=== PATIENT | female | born 1990 | race Caucasian/White ===

== ENCOUNTER 2017-04-07 13:06 | Emergency (ER) | payer MEDICAID, OTHER ==
[~2017-04-07] VITALS: Ht 160 cm; Wt 100.0 kg
[~2017-04-07 13:06] MED LIST: CLON-570 PO; FLUV50 PO; LITH300C3 PO; QUET25TA PO
[2017-04-07] MEDS ORDERED: LIDOCAINE HCL 1% 10 ML VIAL INJ ONE (14:00)
[2017-04-07] MEDS ORDERED: POVIDONE-IODINE 10% 15 ML SOLUTION UD TP ONE (14:00)
[2017-04-07] MEDS ORDERED: HYDROCODONE/ACETAMINOPHEN 5-325 MG TABLET PO ONE (14:00)
[2017-04-07] MEDS ORDERED: CEPHALEXIN MONOHYDRATE 500 MG CAPSULE PO ONE (14:45)
[2017-04-07] MEDS ORDERED: SULFAMETHOX/TRIMETH DS 800-160 MG/TABLET PO ONE (14:45)
[2017-04-07 15:21] VITALS: BP 127/79
[2017-04-07] MEDS ORDERED: BACTDSB PO (19:14)
[2017-04-07] MEDS ORDERED: IBUP-2071 PO (19:14)
[2017-04-07] MEDS ORDERED: CEPH500 PO (19:14)
== END 2017-04-07 15:37 | disposition home or self-care (01) ==
LOC: EMS 13:08
DX: L02.416 Cutaneous abscess of left lower limb (principal); L03.116 Cellulitis of left lower limb; I10 Essential (primary) hypertension
CPT/HCPCS: 10060; 99284; J3490

== ENCOUNTER 2017-04-07 19:08 | Emergency (ER) | payer OTHER ==
[~2017-04-07] VITALS: Ht 160 cm; Wt 100.0 kg
[2017-04-07] MEDS ORDERED: IBUP-2071 PO (19:14)
[2017-04-07] MEDS ORDERED: BACTDSB PO (19:14)
[2017-04-07] MEDS ORDERED: CEPH500 PO (19:14)
[2017-04-07] MEDS: SODIUM CHLORIDE 0.9% 1,000 ML IV ONE (22:42)
[2017-04-07] MEDS: MethylPREDNISolone SOD SUCC 125 MG/2 ML VIAL IVP ONE (22:42)
[2017-04-07] MEDS: DiphenhydrAMINE HCL 50 MG/ML VIAL IVP ONE (22:42)
[2017-04-07] MEDS: ONDANSETRON HCL 4 MG/2 ML VIAL IVP ONE (22:42)
[2017-04-07] MEDS: ACETAMINOPHEN 500 MG TABLET PO ONE (23:06)
[2017-04-08] MEDS: DiphenhydrAMINE HCL 50 MG/ML VIAL IVP ONE (00:49)
[2017-04-08] MEDS: LORazepam 2 MG/ML VIAL IVP ONE (02:00)
[2017-04-08] MEDS: KETOROLAC TROMETHAMINE 30 MG/ML VIAL IVP ONE (03:38)
[2017-04-08 04:10] VITALS: BP 123/68
== END 2017-04-08 04:32 | disposition home or self-care (01) ==
LOC: EMS 19:10
DX: T37.0X5A Adverse effect of sulfonamides, initial encounter (principal); I10 Essential (primary) hypertension; Y92.89 Other specified places as the place of occurrence of the external cause
CPT/HCPCS: 96361; 96374; 96375; 99285; J1200 ×2; J1885; J2060; J2405; J2930; J7030

== ENCOUNTER 2017-04-09 12:53 | Emergency (ER) | payer OTHER ==
[~2017-04-09] VITALS: Ht 160 cm; Wt 100.0 kg
[~2017-04-09 12:53] MED LIST changes: +BACTDSB PO; +CEPH500 PO; +IBUP-2071 PO
[2017-04-09 17:25] VITALS: BP 112/74
== END 2017-04-09 18:07 | disposition home or self-care (01) ==
LOC: EMS 12:53
DX: Z48.00 Encounter for change or removal of nonsurgical wound dressing (principal); I10 Essential (primary) hypertension
CPT/HCPCS: 99283